=== PATIENT | male | born 1990 | race Caucasian/White ===

== ENCOUNTER 2016-11-08 21:19 | Emergency (ER) | payer OTHER ==
[~2016-11-08] VITALS: Ht 167.6 cm; Wt 81.6 kg
[2016-11-08] MEDS ORDERED: NORFLEX IM STA (22:52)
--- NOTE | 2016-11-08 22:55 | ER.PDOC ---
General Chief Complaint: Neck/Upper back Pain Stated Complaint: SPINE/NECK PAIN Time seen by MD: 22:45 Source: patient Exam Limitations: no limitations History of Present Illness Initial Comments Neck pain for 1 month and a half, lately over the last two weeks he noticed knots that apparently move around and hurt when moving head Severity/Quality: moderate Associated Symptoms: muscle spasms Allergies: Coded Allergies: No Known Allergies (Unverified , 11/08/16) Past Medical History Medical History: no pertinent history Surgical History: shoulder Social History Smoking: greater than 1 pack/day Alcohol Use: none Drug Use: none Review of Systems Constitutional: see HPI EENTM: see HPI Respiratory: see HPI Cardiovascular: see HPI Gastrointestinal: see HPI Genitourinary: see HPI Musculoskeletal: see HPI Skin: see HPI Psychiatric/Neurological: see HPI Physical Exam General Appearance: No Apparent Distress, WD/WN HEENT: PERRL/EOMI, Normal ENT Inspection, TMs Normal, Pharynx Normal Neck: Muscle Spasm, Paraspinous Muscle Tender, Tender Lateral, Tender Midline Cardiovascular/Respiratory: Regular Rate, Rhythm, No M/R/G, Normal Peripheral Pulses, No JVD, Normal Breath Sounds, No Respiratory Distress Gastrointestinal: Normal Bowel Sounds, No Organomegaly, No Pulsatile Mass, Non Tender, Soft Back: Normal Inspection, No CVA Tenderness, No Vertebral Tenderness Extremities: No Evidence of Injury, Normal Range of Motion, Non-Tender, No Pedal Edema, Pelvis Stable Neuro/Psych: Alert, daycare worker nml/symmetrical, mood/effect nml, No Motor/Sensory Deficits, Relexes nml Departure Time of Disposition: 22:54 Disposition: 01 HOME, SELF-CARE Impression: Primary Impression: Neck pain Condition: Stable Patient Instructions: Muscle Strain Referrals: PCP,UNKNOWN (PCP) PRIMARY CARE PROVIDER FLORY HUNTER MD November 08, 2016 22:55
[2016-11-08] MEDS ORDERED: NORFLEX ONE (22:56)
[2016-11-08] MEDS ORDERED: TORADOL ONE (22:56)
[2016-11-08] MEDS ORDERED: TORADOL IM ONE (23:00)
== END 2016-11-08 23:20 | disposition home or self-care (01) ==
LOC: ER 21:19
DX: M54.2 Cervicalgia (principal); F17.200 Nicotine dependence, unspecified, uncomplicated
CPT/HCPCS: 96372 ×2; 99284; J1885; J2360